=== PATIENT | male | born 2000 | race Caucasian/White ===

== ENCOUNTER 2025-06-01 12:23 | Emergency (ER) | payer OTHER, SELFPAY ==
--- NOTE | 2025-06-01 | ECG_ITS ---
Test Reason : cp Blood Pressure : */* mmHG Vent. Rate : 87 BPM Atrial Rate : 87 BPM P-R Int : 132 ms QRS Dur : 78 ms QT Int : 346 ms P-R-T Axes : 62 79 38 degrees QTcB Int : 416 ms Normal sinus rhythm with sinus arrhythmia Normal ECG No previous ECGs available Referred By: Generic ED Physician Electronically Signed By: Burton Dumont
[2025-06-01 12:37] VITALS: BP 126/82; PULSE 89; O2SAT 100
[2025-06-01 13:24] VITALS: BP 132/62; PULSE 88; RESP 14; TEMP 36.6; O2SAT 99; BMI 21.7
--- NOTE | 2025-06-01 13:25 | ED.PSYCH ---
HPI - Psych General Chief Complaint: Anxiety Stated Complaint: ANXIETY W/REPROD CWP ON INSPIRATION X4D Time Seen by Provider: 06/01/25 15:03 Source: patient and RN notes reviewed Mode of arrival: ambulatory Limitations: no limitations History of Present Illness ED Provider: Kori Toussaint PA-C HPI Narrative: This is a 24-year-old male who presents emergency department with concerns of increased anxiety. He states that he previously saw PHN a year ago however did not follow-up with an appointment. He states that he occasionally gets short of breath with anxiety attacks. He denies any chest pain or shortness for breath at this time. No suicidal or homicidal ideation. Endorses marijuana use, no other drug use. Denies any auditory or visual hallucinations. No other complaints or concerns at this time. MD complaint: anxiety Onset (ago): month(s) Duration: constant History of same: Yes Relieving factors: none Exacerbating factors: none Associated psychiatric symptoms: none Associated symptoms: denies other symptoms Treatments prior to arrival: none Related Data Previous Rx's ?Medication ?Instructions ?Recorded hydroxyzine HCl 25 mg tablet 25 mg PO TID PRN anxiety #14 tabs 06/01/25 Allergies Allergy/AdvReac Type Severity Reaction Status Date / Time No Known Allergies Allergy Verified 06/01/25 13:27 Review of Systems Review of Systems: Constitutional : No Fever, No Chills ENT/Mouth : No sore throat, No Rhinorrhea Eyes: No Eye Pain, No Swelling, No Redness Cardiovascular : No Chest Pain, No SOB Respiratory : No Cough, No Sputum Gastrointestinal : No Nausea, No Vomiting, No Diarrhea, No abdominal Pain Genitourinary : No Dysuria, No Hematuria Musculoskeletal : No joint pain, No Myalgias, No Joint Swelling Skin : No Skin Lesions Neuro : No Weakness, No Numbness, No Headache All other systems reviewed and are negative Yes all other systems are reviewed and are negative Constitutional: Constitutional: Reports as per [facility] Social History Social History Advance Directives: No Advance Directives Information Provided: Yes Physical Exam Vital Signs: Vital Signs: Last Vital Signs Temp 98 F 06/01/25 15:42 Pulse 88 06/01/25 15:42 Resp 14 06/01/25 15:42 BP 132/62 06/01/25 15:42 Pulse Ox 99 06/01/25 15:42 O2 Del Method Room Air 06/01/25 15:42 BMI result Body Mass Index 21.7 Const: General: cooperative, comfortable and no acute distress Orientation/consciousness: patient oriented x3 Limitations: no limitations HEENT: Head: Yes normal to inspection, Yes normocephalic and Yes atraumatic Ears: hearing grossly normal bilaterally General nose exam: Normal external nose present Face and sinus: Yes normal facial exam Mouth: Normal oral and palatal mucosa present, oropharynx normal and moist mucous membranes Throat: Yes posterior oropharynx normal Eyes: General: appearance normal, both eyes and all related structures Eyelids: Yes eyelids normal Conjunctivae: conjunctivae normal Sclerae: sclerae normal Pupils: Equal, round and reactive pupils present EOM: EOMs intact bilaterally Neck: Neck: Yes normal visual inspection, Yes full ROM and Yes no lymphadenopathy Lymphatic: no lymphadenopathy noted Chest: Chest palpation & inspection: normal inspection of the chest Resp: Effort & Inspection: normal respiratory effort and able to speak in complete sentences Auscultation: clear to auscultation bilaterally, no crackles, no rales, no rhonchi and no wheezes Cardio: Rate: regular rate Rhythm: regular rhythm Heart sounds: S1 normal heart sound present and S2 normal heart sound present GI: Inspection: Yes normal to inspection Skin: General skin exam: no rashes or lesions noted Trauma: no lacerations or abrasions Wounds: no wounds Neuro: General: patient oriented x3 and moves all extremities Cranial nerves: Yes Equal, round and reactive pupils present Extrem: General: Yes normal to inspection Right upper extremity: normal to inspection Left upper extremity: normal to inspection Right lower extremity: normal to inspection Left lower extremity: normal to inspection Psych: Appearance: grossly normal Mental Status: mental status grossly normal Speech and movement: Normal speech and movement present Affect: normal affect Attitude: cooperative Thought process: Normal thought process present Thought content: Normal thought content present Insight: Good insight present (Psych) Judgement: Good judgement present (Psych) Course Course Course Narrative: This is an RME: Additional HPI, ROS, PE not included below will be deferred to primary provider. RME assessment and note performed by: Kori Toussaint PA-C This is a [id number]-male who presents to the ER via EMS with complaints of anxiety attack for the last 4 days. No SI/HI. Has had difficulty with his BH[facility] services and would like to speak with someone. Patient has a history of bipolar anxiety, he is not on medications for this. Plan: Labs, care team consultation. Medications Administered Discontinued Medications Generic Name Dose Route Start Last Admin Trade Name Tigre PRN Reason Stop Dose Admin Hydroxyzine HCl 25 mg 06/01/25 15:32 06/01/25 15:41 Hydroxyzine Hcl 25 Mg Tablet PO 06/01/25 15:33 25 mg ONCE ONE Administration Medical Decision Making Medical Decision Making [facility] Narrative: This is a 24-year-old male who presents emergency department with concerns of bipolar and anxiety. Patient reports that he occasionally gets short of breath however states he does not have any shortness for breath or chest pain at this time and would like to only see care team. Will obtain labs, EKG to ensure no other etiologies. He has no SI or HI Labs returned, he has no leukocytosis, stable H&H, negative troponin, EKG nonischemic. U tox positive for marijuana, otherwise unremarkable. Patient received external resources for CHD. Given strict return precautions, he understands and agrees with plan. Patient stable for discharge. Differential Diagnosis Differential Diagnoses: The differential diagnosis associated with the presentation includes Anxiety, depression, bipolar, substance use Lab Data [facility] Lab Attestation statement: I reviewed the patient's lab results. See MDM 06/01/25 14:40 06/01/25 14:40 Labs: Lab Results 06/01/25 Range/Units 14:40 WBC 7.3 (4.8-10.8) X10*3/uL RBC 4.58 L (4.60-5.80) X10*6/uL Hgb 14.2 (14.0-18.0) g/dl Hct 40.9 L (42.0-52.0) % MCV 89.3 (80.0-98.0) fL MCH 31.0 (27.0-33.0) pg MCHC 34.7 (31.0-36.0) g/dl RDW 12.3 (11.0-16.0) % Plt Count 215 (160-400) X10*3/uL MPV 9.4 (9.4-12.4) fL Immature Gran % (Auto) 0.5 H (0.0-0.4) % Neut % (Auto) 83.3 H (45-73) % Lymph % (Auto) 10.2 L (20-40) % Sampson % (Auto) 5.7 (2-11) % Eos % (Auto) 0.0 (0-4) % Baso % (Auto) 0.3 (0-2) % Lymph # (Auto) 0.8 L (1.2-4.9) X10*3/uL Sampson # (Auto) 0.4 (0.1-1.2) X10*3/uL Eos # (Auto) 0.0 (0.0-0.4) X10*3/uL Baso # (Auto) 0.0 (0.0-0.2) X10*3/uL Abs Immat Gran (auto) 0.04 H (0.00-0.03) X10*3/uL Absolute Neuts (auto) 6.1 (2.0-8.3) x10*3/uL Absolute Nucleated RBC 0.000 (0.0-0.012) X10*3/uL Nucleated RBC % (auto) 0.0 (0.0-0.2) /100WBC Sodium 140 (135-145) mmol/L Potassium 4.2 (3.3-5.1) mmol/L Chloride 107 (96-108) mmol/L Carbon Dioxide 25 (22-29) mmol/L Anion Gap 12 (12-20) BUN 14 (9-16) mg/dL Creatinine 0.74 (0.5-1.4) mg/dL Estim Creat Clear Calc 124.7 Estimated GFR > 60 Random Glucose 113 (60-115) mg/dL Calcium 9.5 (8.4-10.2) mg/dL Total Bilirubin 0.3 (0.0-1.0) mg/dL Direct Bilirubin 0.1 (0.0-0.5) mg/dL AST 23 (5-37) U/L ALT 22 (0-40) U/L Alkaline Phosphatase 67 (39-117) U/L Troponin I High Sens < 2.7 (<3.5-35.0) ng/L Total Protein 7.0 (6.5-8.0) g/dL Albumin 5.1 H (3.5-5.0) g/dL Salicylates < 5.0 L (15-30) mg/dL Urine Opiates Screen Not Detected (Not Detect) Ur Buprenorphine Scrn Not Detected (Not Detect) ng/mL Ur Oxycodone Screen Not Detected (Not Detect) ng/mL Urine Methadone Screen Not Detected (Not Detect) ng/mL Urine Fentanyl Screen Not Detected (Not Detect) Acetaminophen < 3 (<30) mcg/mL Ur Barbiturates Screen Not Detected (Not Detect) Ur Phencyclidine Scrn Not Detected (Not Detect) Ur Amphetamines Screen Not Detected (Not Detect) U Benzodiazepines Scrn Not Detected (Not Detect) Urine Cocaine Screen Not Detected (Not Detect) U Marijuana (THC) Screen POSITIVE H (Not Detect) Ethyl Alcohol < 10 mg/dL Independent Interpretation I performed an independent interpretation of an: EKG Interpretation: EKG normal sinus rhythm with sinus arrhythmia at a ventricular rate of 87 beats per minute, no QT QTC prolongation, no STEMI. Discharge Plan Discharge Clinical Impression: Acute anxiety Patient Disposition: Home, Self-Care Instructions: Generalized Anxiety Disorder (ED), Cognitive Behavioral Therapy (ED), Anxiety (ED) Additional Instructions: You were seen in the emergency department in you were given resources by the care team. We gave you a medication called hydroxyzine. This is a medication that can help with the anxiety. Take this as needed only for anxiety. This can cause drowsiness, do not drink alcohol or drive while taking it. Follow-up with the primary care physician. There are some medications that you can take daily to help prevent anxiety and panic attacks as well. If any new or worsening symptoms occur including but not limited to severe shortness for breath, chest pain, thoughts of harming yourself or anyone else, please seek emergent care. Prescriptions: New hydroxyzine HCl 25 mg tablet 25 mg PO TID PRN (Reason: anxiety) Qty: 14 0RF Stand Alone Forms: Work/School Release Interventions: ED Discharge Assessment Last Done: 06/01/25 15:42 Discharge Date/Time: 06/01/25 15:43 Print Language: Eritrean
[2025-06-01 14:45] LABS: MANUAL DIFF FLAG NO
[2025-06-01 14:48] LABS: Hematocrit 40.9 % (42.0-52.0); Hemoglobin 14.2 g/dl (14.0-18.0); Imm Gran Abs Auto 0.04 X10*3/uL (0.00-0.03); Imm Gran Pct Auto 0.5 % (0.0-0.4); Lymphocytes Absolute Auto 0.8 X10*3/uL (1.2-4.9); Mean Corpuscular HGB Conc 34.7 g/dl (31.0-36.0); Mean Corpuscular Hemoglobin 31.0 pg (27.0-33.0); Mean Corpuscular Volume 89.3 fL (80.0-98.0); NRBC Abs Auto 0.000 X10*3/uL (0.0-0.012); NRBC Pct Auto 0.0 /100WBC (0.0-0.2); Platelet Count 215 X10*3/uL (160-400); Red Blood Count 4.58 X10*6/uL (4.60-5.80); White Blood Count 7.3 X10*3/uL (4.8-10.8)
--- NOTE | 2025-06-01 15:00 | MHC.CARE ---
Patient is a 24-year-old, single, Cymro, Maltese speaking male seen in the [facility] after he presented via ambulance after calling 911. Patient reported a history of bipolar disorder, anxiety, and reports he is not currently on any medications. Patient presented with chest tightness and difficulty breathing. He also reported feeling anxious and is seeking resources for treatment. Patient was referred for consult by CARE team, he reports he feels he had a ?panic attack? and report he has been having a hard time breathing. Patient reports feeling less anxious since arriving to ED and reported he went to [facility] last year for similar symptoms however, he never keep the intake appointment and has no outpatient providers in the community currently. ?He is alert and oriented x4, hygiene and grooming is fair, speech in WNL for rate, tone and volume. He does preset as anxious and clinician observes his hands slightly shaking. He reports multiple life stressors over the last year after his mother was ?locked up? and he tried to care for his siblings but could not. He reports he resides in an apartment in [place] with his ex-girlfriend and is currently unemployed. He denies any suicidal or homicidal ideation plan or intent; he also denies any audio or visual hallucinations and does not appear to be responding to internal stimuli currently. Patient reports bad nightmares and feels he has anxiety when he sleeps. He reports at baseline has poor sleep and appetite and has for many years. He denies any prior inpatient psychiatric admissions, suicide attempts or self-harming behaviors. He reports he uses cannabis daily however, denies any other substance or alcohol use. Patient reports he has a history of being in DCF custody and was in and out of foster care unit he ages out at 18. He does not disclose why his mother is currently incarcerated or why he was placed in DCF custody today. Multiple treatment options were discussed including PHP referral, ACCS level of care and referral to [facility] for urgent outpatient services and three-day follow. Patient opted for referral to [facility] and discharge from ED today. ED provider Kori YATES and Lilian Avitia [facility] were consulted and agree with disposition plan. Patient will be referred to [facility] for urgent outpoint appointment and three day follow up.
[2025-06-01 15:04] LABS: Cannabinoid Screen Urine POSITIVE (Not Detect)
[2025-06-01 15:09] LABS: Acetaminophen LAB < 3 mcg/mL (<30); Salicylate < 5.0 mg/dL (15-30)
[2025-06-01 15:10] LABS: Alanine Aminotransferase 22 U/L (0-40); Albumin Level 5.1 g/dL (3.5-5.0); Alkaline Phosphatase 67 U/L (39-117); Anion Gap 12 (12-20); Aspartate Amino Transferase 23 U/L (5-37); Blood Urea Nitrogen 14 mg/dL (9-16); Calcium 9.5 mg/dL (8.4-10.2); Carbon Dioxide 25 mmol/L (22-29); Chloride 107 mmol/L (96-108); Creatinine Clr Calc Pharmacy 124.7; Estimated Glomerular Filt Rate > 60; Potassium 4.2 mmol/L (3.3-5.1); Sodium 140 mmol/L (135-145); Total Protein 7.0 g/dL (6.5-8.0)
[2025-06-01 15:12] LABS: Troponin-I High Sensitivity < 2.7 ng/L (<3.5-35.0)
[2025-06-01 15:42] VITALS: BP 132/62; PULSE 88; RESP 14; TEMP 36.6; O2SAT 99
== END 2025-06-01 15:43 | disposition home or self-care (01) ==
PROVIDERS: Physician Assistant Medical; Emergency Provider Emergency Medicine Emergency Medical Services
DX: F41.9 Anxiety disorder, unspecified (principal)
CPT/HCPCS: 36415; 80048; 80076; 80143; 80179; 80307; 84484; 85025; 93005; 99283

== ENCOUNTER → 2025-06-01 12:29 | Outpatient (BNV) | payer OTHER, SELFPAY | PROVIDERS: Emergency Provider Emergency Medicine Emergency Medical Services; Visit Provider Internal Medicine Cardiovascular Disease | DX: R07.9 Chest pain, unspecified (principal) | CPT/HCPCS: 93010 ==